=== PATIENT | female | born 1945 | race Caucasian/White ===

== ENCOUNTER 2023-04-24 08:59 | Inpatient (IN) | payer MEDICARE ==
[~2023-04-24] VITALS: Ht 160 cm; Wt 56.8 kg
[2023-04-24] MEDS ORDERED: 0.9% SODIUM CHLORIDE 10 ML SYRINGE IVP PRN (09:45)
[2023-04-24] MEDS: SODIUM CHLORIDE 0.9% 1,700 ML IV ONE (10:03)
[2023-04-24] MEDS: CefTRIAXone 1 GM/DEXTROSE 50 ML IV ONE (10:03)
[2023-04-24 10:33] LABS: BASOPHILS % (AUTO) 1.2 % (0.0-2.0); EOSINOPHILS % (AUTO) 1.1 % (1.0-6.0); HEMATOCRIT 35.5 % (36-46); LYMPHOCYTES # (AUTO) 1.7 K/uL (1.0-4.8); LYMPHOCYTES % (AUTO) 21.5 % (22.0-44.0); MEAN CORPUSCULAR HEMOGLOBIN 31.7 pg (26.0-34.0); MEAN CORPUSCULAR HGB CONC 33.9 G/dL (31.0-37.0); MEAN CORPUSCULAR VOLUME 94 fL (80-100); MONOCYTES # (AUTO) 0.5 K/uL (0.1-1.0); MONOCYTES % (AUTO) 6.4 % (2.0-9.0); NEUTROPHILS # (AUTO) 5.6 K/uL (1.8-7.7); NEUTROPHILS % (AUTO) 69.8 % (40.0-70.0); PLATELET COUNT (AUTO) 368 K/uL (150-450); RED BLOOD CELL COUNT(AUTO) 3.79 MIL/uL (4.00-5.20); RED CELL DISTRIBUTION WIDTH 15.1 % (11.5-14.5); WHITE BLOOD COUNT (AUTO) 8.1 K/uL (4.5-11.0)
[2023-04-24 10:34] LABS: COVID AG,FIA SOURCE NASAL SWAB
[2023-04-24 10:42] LABS: ANION GAP 14 mmol/L (8-16); CALCIUM, TOTAL 9.7 mg/dL (8.8-10.5); CARBON DIOXIDE 21 mmol/L (22-29); CHLORIDE 98 mmol/L (98-107); CREATININE 1.16 mg/dL (0.60-1.30); GLOMERULAR FILTR. RATE CALC 45 mL/min (>60); GLUCOSE,RANDOM 151 mg/dL (70-110); POTASSIUM 4.2 mmol/L (3.5-5.1); SODIUM SERUM 133 mmol/L (136-145); UREA NITROGEN, BLOOD 24 mg/dL (7-18)
[2023-04-24 10:46] LABS: D-DIMER 1.14 mg/L FEU (0.00-0.50); PROTHROMBIN TIME 10.8 SEC (9.4-11.6)
[2023-04-24 10:48] LABS: ALANINE AMINOTRANSFERASE 14 U/L (12-78); ALBUMIN 3.1 g/dL (3.4-5.0); ALKALINE PHOSPHATASE 64 U/L (46-116); ASPARTATE AMINOTRANSFERASE 22 U/L (15-37); BILIRUBIN,TOTAL 0.5 mg/dL (0.1-1.0); TOTAL PROTEIN, SERUM 7.9 g/dL (6.4-8.2)
[2023-04-24 10:50] LABS: TROPONIN I-HIGH SENSITIVITY 10 ng/L (<51)
[2023-04-24] MEDS ORDERED: IOHEXOL 350 MG/ML 100 ML VIAL ONE (10:50)
[2023-04-24] MEDS ORDERED: SODIUM CHLORIDE 0.9% 100 ML ONE (10:50)
[2023-04-24 10:51] LABS: SARS-COV2 (COVID) ANTIGEN,FIA Negative (Negative)
[2023-04-24 10:52] LABS: INFLUENZA TYPE A NEGATIVE FOR TYPE A (NEGATIVE); INFLUENZA TYPE B NEGATIVE FOR TYPE B (NEGATIVE)
[2023-04-24 10:56] LABS: B-TYPE NATRIURETIC PEPTIDE 97 pg/mL (0-100)
[2023-04-24 12:21] LABS: LACTIC ACID 3.3 mmol/L (0.4-2.0)
[2023-04-24] MEDS ORDERED: ACETAMINOPHEN 325 MG TABLET PO PRN (12:45)
[2023-04-24] MEDS ORDERED: ALBUTEROL SULFATE 2.5 MG/0.5 ML NEB SOLUTION NEB PRN (12:45)
[2023-04-24] MEDS ORDERED: ONDANSETRON HCL 4 MG/2 ML VIAL IVP PRN (12:45)
[2023-04-24 13:26] LABS: APPEARANCE,URINE CLEAR (CLEAR); BILIRUBIN,URINE NEGATIVE (NEGATIVE); COLOR,URINE LIGHT YELLOW (YELLOW); GLUCOSE, URINE (UA) NEGATIVE (NEGATIVE); KETONES,URINE NEGATIVE (NEGATIVE); LEUKOCYTE ESTERASE ,URINE LARGE (NEGATIVE); NITRATE,URINE NEGATIVE (NEGATIVE); OCCULT BLOOD,URINE NEGATIVE (NEGATIVE); PROTEIN,URINE NEGATIVE (NEGATIVE); SPECIFIC GRAVITIY, URINE 1.037 (1.003-1.030); UROBILINOGEN,URINE <=1.0 mg/dL (<=1.0)
[2023-04-24 13:37] LABS: BACTERIA,URINE Few /HPF (None Seen); RBC,URINE None Seen /HPF (0-2); SQUAMOUS EPITHELIAL CELL,UR Few /LPF (None Seen)
[2023-04-24] MEDS: HEPARIN SODIUM,PORCINE 5,000 UNITS/ML VIAL SQ SCH (16:00)
[2023-04-24 18:49] VITALS: BP 131/74; PULSE 52; RESP 22; TEMP 98.4
[2023-04-24] MEDS: DOCUSATE SODIUM 100 MG CAPSULE PO SCH (20:19)
[2023-04-24] MEDS: MORPHINE SULFATE 2 MG/ML SYRINGE IVP PRN (21:49)
[2023-04-24 22:25] VITALS: BP 108/54; PULSE 83; RESP 16; TEMP 98.3
[2023-04-25 00:33] VITALS: BP 117/63; PULSE 77; RESP 20; TEMP 98.5
[2023-04-25 03:46] VITALS: BP 123/55; PULSE 80; RESP 20; TEMP 98.4
[2023-04-25 07:29] VITALS: BP 121/49; PULSE 85; RESP 18; TEMP 98.2
[2023-04-25] MEDS: FAMOTIDINE 20 MG TABLET PO SCH (09:26)
[2023-04-25 11:05] VITALS: BP 135/72; PULSE 89; RESP 18; TEMP 98.1
== END 2023-04-25 12:05 | disposition hospice, home (50) | DRG 189 ==
LOC: EMS 08:59 → AHU 12:55 → 5S 18:11
PROVIDERS: ADMIT Internal Medicine; ATTEND Internal Medicine
DX: J96.01 Acute respiratory failure with hypoxia (principal); C34.92 Malignant neoplasm of unspecified part of left bronchus or lung; C79.9 Secondary malignant neoplasm of unspecified site; J91.0 Malignant pleural effusion; I10 Essential (primary) hypertension; J44.9 Chronic obstructive pulmonary disease, unspecified; R53.81 Other malaise; Z20.822 Contact with and (suspected) exposure to COVID-19; Z66 Do not resuscitate; Z74.01 Bed confinement status; Z85.3 Personal history of malignant neoplasm of breast; Z88.0 Allergy status to penicillin; Z88.2 Allergy status to sulfonamides; Z92.21 Personal history of antineoplastic chemotherapy; Z92.3 Personal history of irradiation; Z98.82 Breast implant status; Z88.1 Allergy status to other antibiotic agents; Z88.8 Allergy status to other drugs, medicaments and biological substances
CPT/HCPCS: 71045; 71260; 72193; 74160; 80053; 81001; 83605; 83880; 84145; 84484; 85025; 85379; 85610; 87040; 87086; 87186; 87804; 93005; 93306; 99285; J0696; J1644; J2270; J7030; J7050; Q9967; 36415-L1; 36415-TC